=== PATIENT | female | born 1980 | race Caucasian/White ===

== ENCOUNTER 2017-09-30 13:50 | Emergency (ER) | payer OTHER ==
[2017-09-30 13:59] VITALS: BP 155/101
[2017-09-30] MEDS ORDERED: AMOX/CLAV 875 MG/125 MG TABLET PO STA (14:02)
--- NOTE | 2017-09-30 14:05 | ED Physician Documentation ---
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 She is up-to-date on tetanus. This happened just prior to arrival.) Review of Systems Constitutional: denies: Fever, Chills Nose: reports: Reviewed and negative Respiratory: reports: Reviewed and negative PD PAST MEDICAL HISTORY - Past Medical History Cardiovascular: Hypertension Psych: Depression Derm: Psoriasis - Present Medications Home Medications: Ambulatory Orders Medication Instructions Recorded Confirmed Doxycycline Calcium [Vibramycin] 0 mg 12/07/15 Prazosin [Minipress] 2 mg 12/07/15 Spironolactone 50 mg PO BID 12/07/15 Amox/Clav 875/125 [Augmentin] 1 each PO Q12H #14 tablet 09/30/17 Lisinopril/Hydrochlorothiazide mg PO DAILY 09/30/17 [Lisinopril-Hctz 10-12.5 mg Tab] Metoprolol Succinate [Toprol Xl] 09/30/17 - Allergies Allergies/Adverse Reactions: Allergies Allergy/AdvReac Type Severity Reaction Status Date / Time No Known Drug Allergies Allergy Verified 09/30/17 13:59 - Social History Does the pt smoke?: No Smoking Status: Never smoker Does the pt drink ETOH?: No Does the pt have substance abuse?: No - Immunizations Immunizations are current?: Yes PD ED PE NORMAL - Vitals Vital signs reviewed: Yes - General General: Alert and oriented X 3, No acute distress - Extremities Extremities: Other (On the tip of the left index finger at the level of the distal phalanx just proximal to the nailbed on the dorsal radial side there is a small puncture wound without tenderness or limited range of motion.) - Neuro Neuro: Alert and oriented X 3, Normal speech Results - Vitals Vitals: Vital Signs - 24 hr 09/30/17 13:56 Heart Rate 91 Respiratory 18 Rate Blood Pressure 155/101 H O2 Saturation 96 Oxygen O2 Source Room air PD MEDICAL DECISION MAKING - Sepsis Event Vital Signs: Vital Signs - 24 hr 09/30/17 13:56 Heart Rate 91 Respiratory 18 Rate Blood Pressure 155/101 H O2 Saturation 96 Oxygen O2 Source Room air Departure - Departure Disposition: Home, Self Care Clinical Impression: Puncture wound of finger of left hand Qualifiers: Encounter type: initial encounter Qualified Code(s): S61.239A - Puncture wound without foreign body of unspecified finger without damage to nail, initial encounter Condition: Good Record reviewed to determine appropriate education?: Yes Instructions: ED Wound Puncture General Prescriptions: Amox/Clav 875/125 [Augmentin] 1 each PO Q12H #14 tablet Comments: Return if you develop increased pain, redness, swelling or fevers, or cannot keep down the medication. Otherwise follow-up with your physician in approximately 2-3 days. Your blood pressure was elevated today on check into the emergency department. This does not mean that you have hypertension, it is a common phenomenon to come to the emergency department and have elevated blood pressure. I recommend that you see your primary care physician within the week to have it rechecked when you are feeling better.
--- NOTE | 2017-09-30 14:34 | XRAY Report ---
Procedure Date: 09/30/2017 Accession Number: [id number] / [id number] Procedure: XR - Finger(s) LT CPT Code: FULL RESULT: EXAM: LEFT SECOND DIGIT RADIOGRAPHY EXAM DATE: 09/30/2017 02:14 PM. CLINICAL HISTORY: FINGER INJ. COMPARISON: None. TECHNIQUE: 3 views. FINDINGS: Bones: Normal. No fracture or bone lesion. Joints: Normal. No subluxations. Soft Tissues: No foreign body. IMPRESSION: No fracture or foreign body. RADIA
== END 2017-09-30 14:25 | disposition home or self-care (01) ==
LOC: ED 13:50
DX: S61.231A Puncture wound without foreign body of left index finger without damage to nail, initial encounter (principal); W27.8XXA Contact with other nonpowered hand tool, initial encounter; Y93.K3 Activity, grooming and shearing an animal; Y92.89 Other specified places as the place of occurrence of the external cause; Y99.0 Civilian activity done for income or pay
CPT/HCPCS: 1040M; 73140; 99283; A9270

== ENCOUNTER 2022-06-01 10:20 | Outpatient (CLI) | payer BC ==
--- NOTE | 2022-06-01 11:28 | XRAY Report ---
PROCEDURE: Foot 3 View RT INDICATIONS: PAIN IN RIGHT FOOT TECHNIQUE: 3 views of the foot were acquired. COMPARISON: None FINDINGS: Bones: No fractures or dislocations. No suspicious bony lesions. Plantar calcaneal spur. Soft tissues: No tibiotalar joint effusion. Achilles tendon appears normal. IMPRESSION: Plantar calcaneal spur. Otherwise unremarkable. Reviewed by: Esteban Coy MD on 06/01/2022 11:27 AM [facility] Approved by: Esteban Coy MD on 06/01/2022 11:27 AM [facility] Station ID: [id number]
== END 2022-06-01 10:21 | disposition home or self-care (01) ==
LOC: DI 10:20
PROVIDERS: ATTEND Registered Nurse
DX: M77.31 Calcaneal spur, right foot (principal)